=== PATIENT | female | born 1960 | race African-American/Black ===

== ENCOUNTER 2016-06-23 06:01 | Inpatient (IN) ==
[2016-06-13 16:19] LABS: Basophils % 0.4 % (0.0-0.8); Eosinophils # 0.1 10*3/uL (0.0-0.87); Eosinophils % 0.8 % (0.00-10.9); Hematocrit 39.9 VOL% (35.7-47.0); Immature Granulocytes % 0.4 %; Immature Granulocytes Absolute 0.03 #; Lymphocytes # 1.8 10*3/uL (1.4-4.0); Lymphocytes % 21.3 % (21.3-54.2); Mean Corpuscular HGB Conc 32.6 GM/DL (32-36); Mean Corpuscular Hemoglobin 29 PG (27-34); Mean Corpuscular Volume 89.1 FL (87-102); Mean Platelet Volume 9.7 FL (9.6-12.0); Monocytes # 0.5 10*3/uL (0.11-0.8); Monocytes % 5.9 % (1.7-12.7); Neutrophils % 71.2 % (38.7-73.9); Platelet Count 338 10*3/uL (130-400); Red Blood Count 4.48 10*6/uL (3.8-5.5); Red Cell Distribution Width 13.2 % (9.3-17.3); White Blood Count 8.5 10*3/uL (4.5-13.71)
[2016-06-13 16:37] LABS: Calcium 9.7 MG/DL (8.5-10.1); Osmolality,Calculated 278.3 MOS/KG (273-304); Potassium 4.3 MMOL/L (3.5-5.1)
--- NOTE | 2016-06-22 12:05 | EKG Report ---
Stationary ECG Study [facility] Test Date: 06/22/2016 12:03:40 PM Pat Name: BRIE MIN Department: Room: Gender: F Historiography Teacher: NICOLE 06-23-16 : 1960 Requested by: Marlo Nava Order Number: [id number] Reading MD: NELLY MUÑOZ Intervals [place] Rate: 86 P: 73 [place]: 166 QRS: 79 QRSD: 86 T: 63 QT: 358 QTc: 401 Interpretive Statements SINUS RHYTHM Electronically Signed On 06-23-16 07:29:16 ENGAGEMENT MANAGER by NELLY MUÑOZ [email or web address]
--- NOTE | 2016-06-22 13:39 | XRay Report ---
XR chest 2V Indication: Pulmonary preop evaluation. Chest 2 views: No comparison. Normal heart size and mediastinal contour. Lungs are clear. Pleural spaces are clear. Impression: No acute cardio pulmonary disease. PROCEDURE INTERPRETED AT [facility] ([facility]) DEPARTMENT OF RADIOLOGY Final Report Signed by: Jose A Stephen M.D.
[2016-06-23] MEDS ORDERED: FAMOTIDINE 20 MG/2 ML VIAL IV ONE (06:20)
[2016-06-23] MEDS ORDERED: ISOSULFAN BLUE 5 ML VIAL SUBCUT ONE (06:24)
[2016-06-23] MEDS: LACTATED RINGERS 1,000 ML IV SCH ×2 (06:35→08:55)
[2016-06-23] MEDS ORDERED: PROPOFOL 200 MG/20 ML VIAL IV ONE (07:05)
[2016-06-23] MEDS ORDERED: GLYCOPYRROLATE 0.4 MG/2 ML VIAL ONE (07:05)
[2016-06-23] MEDS ORDERED: LIDOCAINE 1% 5 ML VIAL ONE (07:05)
[2016-06-23] MEDS ORDERED: SUCCINYLCHOLINE 200 MG/10 ML VIAL ONE (07:05)
[2016-06-23] MEDS ORDERED: ROCURONIUM 100 MG/10 ML VIAL IV ONE (07:05)
[2016-06-23] MEDS ORDERED: NEOSTIGMINE 10 MG/10 ML VIAL ONE (07:05)
--- NOTE | 2016-06-23 07:27 | History and Physical Update ---
History and Physical Update - History and Physical H&P was reviewed, the patient examined and there: are no changes in the patients condition since last H&P was completed.
[2016-06-23] MEDS ORDERED: ONDANSETRON 4 MG/2 ML VIAL IV PRN ×2 (08:48→09:42)
--- NOTE | 2016-06-23 08:48 | Operative Note ---
Date of procedure: 06/23/16 Pre-op diagnosis: multifocal right breast cancer Post-op diagnosis: same Procedure: 1 right modified radical mastectomy #2 [place] lymph node excision using radio guidance #3 injection of blue dye for sentinel lymph node localization Findings and technique: After informed consent was obtained the patient was brought to the operating room and placed in spine position. After successful induction with general anesthesia the right breast was injected with blue dye adjacent to the nipple where the palpable mass was located. Sterile technique was used for this and then the right breast was prepped and draped in usual sterile fashion. The skin skin marker was used to rach out the planned skin flaps for the mastectomy and I incorporated the dissection in the lymph node within these skin lines. Dissection was carried down into the axilla where a blue stained lymphatic was followed down to 2 adjacent lymph nodes which each had intense gamma activity. There was minimal background activity. Both of these lymph nodes were removed separately and one of these had light blue staining. Frozen section on these lymph nodes was benign. There was no background activity that was significant in the axilla following excision of these 2 lymph nodes. Mastectomy was then performed by raising a superior flap to the level of the clavicle and medially to the sternum. Inferiorly the dissection was carried beneath the inframammary crease down to the insertion of the rectus muscle. Laterally the dissection was carried out to the anterior border of latissimus dorsi muscle. The breast was reflected off of the pectoralis major muscle and into the axilla where the lower lymph nodes were probably included with a portion of the breast specimen. The thoracodorsal vessels and nerve and intercostal brachial nerve and long thoracic nerve were identified and preserved. I did not do an extensive axillary lymph node dissection because of the negative sentinel nodes. Good hemostasis was noted and the wound was irrigated and closed with a POWER drain placed in the lateral aspect of the defect and brought out through separate stab incision inferiorly. Skin flaps were approximated with interrupted Vicryl sutures approximating the subcutaneous and subdermal layer and the skin closed with skin clips. A bulky dressing was applied. She appeared to tolerate the procedure well and did receive perioperative IV antibiotics. Anesthesia: GETA Surgeon / Physician: Marlo Nava III. Estimated blood loss: other (50 mL) Specimens: other (sentinel lymph nodes and right breast) Condition: stable Disposition: PACU Results - Labs CBC & BMP: 06/13/16 16:00 06/13/16 16:00 Discharge Plan - Discharge Medications No Action Oxycodone HCl/Acetaminophen [Percocet 7.5-325 mg Tablet] 1 each PO DIRECTED Spironolactone 25 mg PO DAILY Cholecalciferol (Vitamin D3) [Vitamin D3] 1 capsule PO DAILY Pantoprazole Sodium [Protonix] 40 mg PO DAILY Saccharomyces Boulardii [Probiotic] 1 tablet PO DAILY Fluticasone 50 Mcg Nasal [place] [Flonase Nasal [place]] 2 spray BOTH NARES DAILY Ferrous Sulfate [Iron] 15 mg IM Verapamil Sr Tab [Calan Sr Tab] 180 mg PO DAILY Duloxetine HCl [Cymbalta] 60 mg PO DAILY Azelastine HCl [Azelastine 0.15% Nasal [place]] 2 spray BOTH NARES BID Verapamil HCl [Verapamil ER Cap] 180 mg PO DAILY - Follow Up or Referral - Forms/Instructions
[2016-06-23] MEDS ORDERED: VERAPAMIL HCL 180 MG PO SCH (09:00)
[2016-06-23] MEDS ORDERED: CHOLECALCIFEROL PO SCH (09:00)
[2016-06-23] MEDS ORDERED: AZELASTINE HCL BOTH NARES SCH (09:00)
[2016-06-23] MEDS ORDERED: LACTATED RINGERS 1,000 ML IV ONE (09:03)
[2016-06-23] MEDS ORDERED: SEVOFLURANE 1 UNIT/15 MINUTE INH ONE (09:03)
[2016-06-23] MEDS ORDERED: fentaNYL 100 MCG/2 ML VIAL ONE (09:03)
[2016-06-23] MEDS ORDERED: MIDAZOLAM 2 MG/2 ML VIAL ONE (09:03)
[2016-06-23] MEDS: MORPHINE PCA 30 MG/30 ML SYRINGE IV SCH (09:49)
--- NOTE | 2016-06-23 12:23 | Anesthesia ---
Anesthesia Post OP - Post Ansesthetic Evaluation Patient seen in post op: Yes Resp: within normal limits CV: within normal limits Mental: within normal limits Temp: within normal limits Vxce-[id number]-[id number]: within normal limits Nausea and Vomiting: within normal limits (had N\V in pacu zofran given pt. better.) Pain: within normal limits
[2016-06-23] MEDS: SPIRONOLACTONE 25 MG TABLET PO SCH (14:38)
[2016-06-23] MEDS: FLUTICASONE 50 MCG NASAL SPRAY 16 GM BOTTLE BOTH NARES SCH (14:38)
[2016-06-23] MEDS: VERAPAMIL SR 180 MG TABLET PO SCH (14:38)
[2016-06-23] MEDS: PANTOPRAZOLE 40 MG TABLET PO SCH (14:39)
[2016-06-23] MEDS: ceFAZolin 2,000 MG in PREMIX 1 EACH IV SCH ×2 (16:30→22:47)
[2016-06-24 06:41] LABS: Basophils % 0.3 % (0.0-0.8); Eosinophils # 0.1 10*3/uL (0.0-0.87); Eosinophils % 0.9 % (0.00-10.9); Hematocrit 33.5 VOL% (35.7-47.0); Hemoglobin 10.6 GM/DL (12.0-16.0); Immature Granulocytes % 0.1 %; Immature Granulocytes Absolute 0.01 #; Lymphocytes # 1.7 10*3/uL (1.4-4.0); Lymphocytes % 21.6 % (21.3-54.2); Mean Corpuscular HGB Conc 31.6 GM/DL (32-36); Mean Corpuscular Hemoglobin 28 PG (27-34); Mean Corpuscular Volume 89.6 FL (87-102); Mean Platelet Volume 9.9 FL (9.6-12.0); Monocytes # 0.6 10*3/uL (0.11-0.8); Monocytes % 7.7 % (1.7-12.7); Neutrophils # 5.4 10*3/uL (1.4-7.4); Neutrophils % 69.4 % (38.7-73.9); Platelet Count 265 10*3/uL (130-400); Red Blood Count 3.74 10*6/uL (3.8-5.5); Red Cell Distribution Width 13.4 % (9.3-17.3); White Blood Count 7.8 10*3/uL (4.5-13.71)
[2016-06-24 07:11] LABS: Calcium 8.5 MG/DL (8.5-10.1)
[2016-06-24] MEDS: VERAPAMIL SR 180 MG TABLET PO SCH (09:46)
[2016-06-24] MEDS: PANTOPRAZOLE 40 MG TABLET PO SCH (09:46)
[2016-06-24] MEDS: SPIRONOLACTONE 25 MG TABLET PO SCH (09:46)
[2016-06-24] MEDS: FLUTICASONE 50 MCG NASAL SPRAY 16 GM BOTTLE BOTH NARES SCH (09:48)
[2016-06-24] MEDS ORDERED: DULoxetine 30 MG CAPSULE PO SCH (10:00)
[2016-06-24] MEDS ORDERED: MEPERIDINE 50 MG TABLET PO PRN (10:27)
--- NOTE | 2016-06-24 11:00 | Event Note ---
Status post right mastectomy and sentinel lymph node biopsy. She is doing fairly well. She's been doing range of motion exercises. She is afebrile and her vital signs are stable. She complains of continued pain and states the morphine AUTO ELECTRICIAN is making her itch. On exam the right mastectomy site looks good with no hematoma or any bleeding. POWER drain has moderate serosanguineous output. Labs are okay. Plan: We'll DC the AUTO ELECTRICIAN. Start Demerol by mouth and give Dilaudid IV for breakthrough pain. She's doing well she could possibly go home tomorrow.
[2016-06-24] MEDS: DULoxetine 30 MG CAPSULE PO SCH (11:05)
[2016-06-24] MEDS: MORPHINE PCA 30 MG/30 ML SYRINGE IV SCH (11:26)
[2016-06-24] MEDS: LACTATED RINGERS 1,000 ML IV SCH (11:40)
[2016-06-25] MEDS: FLUTICASONE 50 MCG NASAL SPRAY 16 GM BOTTLE BOTH NARES SCH (10:00)
[2016-06-25] MEDS: DULoxetine 30 MG CAPSULE PO SCH (10:00)
[2016-06-25] MEDS: SPIRONOLACTONE 25 MG TABLET PO SCH (10:00)
[2016-06-25] MEDS: PANTOPRAZOLE 40 MG TABLET PO SCH (10:00)
[2016-06-25] MEDS: VERAPAMIL SR 180 MG TABLET PO SCH (10:00)
--- NOTE | 2016-06-25 12:17 | Event Note ---
Doing well. Wants to go home. Afebrile vital signs stable. Right mastectomy site looks good. There is no hematoma or drainage. POWER drain with minimal serosanguineous fluid present. She's doing range of motion exercises. We'll plan for discharge today and she'll follow-up with Dr. Nava later this week for removal of the POWER drain. She'll be taught POWER care instructions and keep the drain Journal. Given Demerol prescription, but she has not needed any pain medication since off the LAB SUPPORT SERVICE TECH.
--- NOTE | 2016-06-25 12:19 | Discharge Summary ---
Discharge Plan - Discharge Medications New Meperidine Tab [Demerol Tab] 25 mg PO Q4H PRN #40 tablet PRN Reason: Pain Severe (8-10) Ondansetron Inj [Zofran Inj] 4 mg IV Q4H PRN #20 vial PRN Reason: Nausea/Vomiting Continue Spironolactone 25 mg PO DAILY Cholecalciferol (Vitamin D3) [Vitamin D3] 1 capsule PO DAILY Pantoprazole Sodium [Protonix] 40 mg PO DAILY Saccharomyces Boulardii [Probiotic] 1 tablet PO DAILY Fluticasone 50 Mcg Nasal [place] [Flonase Nasal [place]] 2 spray BOTH NARES DAILY Ferrous Sulfate [Iron] 15 mg IM Verapamil Sr Tab [Calan Sr Tab] 180 mg PO DAILY Duloxetine HCl [Cymbalta] 60 mg PO DAILY Azelastine HCl [Azelastine 0.15% Nasal [place]] 2 spray BOTH NARES BID Verapamil HCl [Verapamil ER Cap] 180 mg PO DAILY Discontinued Oxycodone HCl/Acetaminophen [Percocet 7.5-325 mg Tablet] 1 each PO DIRECTED - Follow Up or Referral - Forms/Instructions Exam - Constitutional Vitals: Period Temp Pulse Resp BP Sys/Ignacio Pulse Ox Last 24 Hr 96.7 F-97.7 F 76-84 16-20 113-132/60-75 94-96 DS: Provider Date of admission: 06/23/16 08:48 Attending physician on admission: Marlo Nava III., Consults: 06/23/16 12:34 Consult to Pharmacy [CONS] Routine Reason for Pharmacy Consult: Adjust Meds Renal Funct Discharging clinician: Gene Tejeda MD
[2016-06-25 12:51] VITALS: BP 129/81
--- NOTE | 2016-06-26 15:41 | Pathology Report from [facility] ---
ACCESSION # : [id number] PATIENT NAME : Aniya Martin ORDERING DR : PAT SPARKS III, MD CLINICAL HX: Breast CA POST-OP DX: Same SPECIMEN INFO: #1 & #2 [place] node #3 RT breast GROSS DESCRIPTION: #1 Received fresh for frozen section labeled with the patient 's name "ANIYA MARTIN and #1" consists of a hyperemic tissue fragment measuring 1.5 x 0.9 cm. On sectioning there is a possible lymph node that measures 0.8 x 0.4 cm. Submitted in cassette #1 for frozen section.#2 Received fresh for frozen section labeled with the patient's name "ANIYA MARTIN and # 2" consists of a red-yellow fatty tissue fragment that measures 1.8 x 1.0 x 0.2 cm. Sectioning through there is a possible lymph node that measures 0.8 x 0.4 cm. Submitted in cassette #2 for frozen section.#3 Received fresh labeled with the patient's name "ANIYA MARTIN and #3" and consists of a 23.6 x 19.5 cm x up to 4.8 cm right mastectomy specimen with an overlying ellipse of skin measures 19.1 x 10.1 cm. There is a mass present immediately underneath the nipple. Sectioning through reveals a 3.1 x 2.5 cm hemorrhagic cavity. Within this cavity there is a metal biopsy clip. The cavity site comes to within 0.2 cm of the anterior skin margin and approximately 3.5 cm from the deep margin. Adjacent to this cavity is firm benoit-white tumor that measures approximately 2.8 x 1.5 cm. Approximately 4.0 cm from the hemorrhagic cavity is a 0.6 x 0.9 cm firm white mass that comes to within 0.8 cm of the anterior skin margin and approximately 4.0 cm of the deep tissue margin. A biopsy clip is also found in this area. Sectioning through the remainder of the breast shows vascularity with a few areas of dense fibrous stroma. No other masses identified. Sections submitted: 3A thru 3C hemorrhagic cavity and tumor including nipple in cassette 3A, 3D thru 3F second tumor, 3G insurance follow up representative breast tissue, 3H deep margin.Note: Time in formalin is 08:00 AM on Sunday06/23/2016. Time out of formalin is 10:15 PM on Sunday06/24/2016. 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 TUMOR SITE: UIQ TUMOR SIZE: 30 mm. and 9 mm. ELENA GRADE II (tubules = 2, pleomorphism = 3, mitoses = 8 MF/ 10 HPF ) TUMOR MARGINS: Margins uninvolved by carcinoma, with nearest (anterior) margin = 2 mm. FOCALITY: Multifocal (two foci), measuring 30 and 9 mm. DCIS: Absent. LYMPH-VASCULAR INVASION: Absent. LYMPH NODES: Total lymph nodes present (sentinel & non sentinel): 2; Total sentinel nodes: 2. All lymph nodes negative for tumor (0/2). AJCC PATHOLOGIC STAGE IIA [pT2pN0(i-) ]. SERVICE DATE: 06/23/2016 REPORT DATE: 06/26/2016 PATHOLOGIST: Lenny Ferreira M.D. [facility]
== END 2016-06-25 16:10 | disposition home or self-care (01) | DRG 581 ==
LOC: N.OR 06:01 → N.SDSINP 06:01 → N.4E 11:27
PROVIDERS: ADMIT Surgery; ATTEND Surgery